=== PATIENT | female | born 1950 | race Caucasian/White ===

== ENCOUNTER → 2017-11-22 | Outpatient (CLI) | payer MEDICARE, OTHER ==
[~2017-11-22] MED LIST: REGADENOSON 0.4 MG/5 ML DISP.SYRIN. IV ONE
--- NOTE | 2017-11-22 09:26 | CARD ---
MR#: [id number] Date of Study: 11/22/2017 Ordering Physician: KAYA CHACKO, Referring Physician: KAYA CHACKO, Tech: AYDEN Resendiz APPROVED REPORT EXAM: Two-dimensional and M-mode echocardiogram with Doppler and color Doppler. Other Information Quality : AverageHR: 71bpm Technically limited study due to smoking. INDICATION Dyspnea RISK FACTORS Smoking 2D DIMENSIONS RVDd2.5 (2.9-3.5cm)Left Atrium(2D)2.5 (1.6-4.0cm) IVSd1.0 (0.7-1.1cm)Aortic Root(2D)2.6 (2.0-3.7cm) LVDd4.4 (3.9-5.9cm)LVOT Diameter1.7 (1.8-2.4cm) PWd1.0 (0.7-1.1cm)LVDs2.9 (2.5-4.0cm) FS (%) 35.0 %SV57.7 ml LVEF(%)64.4 (>50%) Aortic Valve AoV Peak Thien.115.1cm/sAoV VTI30.2cm AO Peak GR.5.3mmHgLVOT Peak Thien.89.9cm/s LVOT VTI 20.29cmAO Mean GR.3mmHg ALVIN (VMAX)1.13ww7CYV (VTI)1.49cm2 Mitral Valve MV E Hhqxcsoz114.9cm/sMV E Peak Gr.54mmHg MV DECEL [id number] A Alcioaer71.2cm/s E/A Ratio1.1 Pulmonary Valve PV Peak Koltywkl41.5cm/sPV Peak Grad.3mmHg LEFT VENTRICLE The left ventricle is normal size. There is normal left ventricular wall thickness. The left ventricu lar systolic function is normal and the ejection fraction is within normal range. EF 65% There is nor mal LV segmental wall motion. Tissue Doppler imaging reveals moderate left ventricular diastolic dysf unction. RIGHT VENTRICLE The right ventricle is normal size. The right ventricular systolic function is normal. ATRIA The left atrium size is normal. The right atrium size is normal. Interatrial septum not well visualiz ed. AORTIC VALVE The aortic valve has restricted leaflet motion but opens. Doppler and Color Flow revealed no signific ant aortic regurgitation. There is no significant aortic valvular stenosis. There is no aortic valvul ar vegetation. MITRAL VALVE The mitral valve is mildly thickened. There is no evidence of mitral valve prolapse. There is no mitr al valve stenosis. Doppler and Color-flow revealed mild mitral regurgitation. TRICUSPID VALVE The tricuspid valve leaflets are thickened , but open well. Doppler and Color Flow revealed trace tri cuspid regurgitation. There is no tricuspid valve prolapse or vegetation. There is no tricuspid valve stenosis. PULMONIC VALVE The pulmonic valve is not well visualized. Doppler and Color Flow revealed trace to mild pulmonic harjit vular regurgitation. There is no pulmonic valvular stenosis. GREAT VESSELS The aortic root is normal in size. The IVC was not visualized. PERICARDIAL EFFUSION There is no pleural effusion. There is no evidence of significant pericardial effusion. Critical Notification Critical Value: No <Conclusion> The left ventricular systolic function is normal and the ejection fraction is within normal range. EF 65% There is normal LV segmental wall motion. No significant valvular disease by doppler criteria. Signed by : Kaya Chacko, Electronically Approved : 11/22/2017 09:25:34
--- NOTE | 2017-11-22 13:43 | RAD ---
MR#: [id number] Date of Study: 11/22/2017 Ordering Physician: KAYA CHACKO, Referring Physician: GEORGETTE MACHADO Tech: RT Terrie (R) (N) APPROVED REPORT Test Type: Pharmacological Stress Nurse/Tech: Howard Test Indications: BOWERS Cardiac History: See EHR Medications: See EHR Resting Heart Rate: 74 bpm Resting Blood Pressure: 184/88mmHg Pretest Chest Pain: None Pharm. Details Pharmacologic stress testing was performed using 0.4mg per 5ml of regadenoson given intravenously ove r 7-10 seconds. Stress Symptoms Dyspnea POST EXERCISE Reason for Termination: Infusion complete Max HR: 123 bpm Max Blood Pressure: 190/74mmHg Blood Pressure response to exercise: Normal blood pressure response during stress. Heart Rate response to exercise: increase Chest Pain: No. Arrhythmia: Yes. ST Change: Yes. INTERPRETATION Stress EKG Conclusion: Baseline EKG showed sinus rhythm. Non-diagnostic changes at peak stress. Peg ef episode of SVT noted in recovery terminated by carotid massage. Rest: Stress: Viability: Radiopharm.Tc99m KhzgasfitTb82q Sestamibi [id number] 33mCi Duration 20min. 15min. Img Date 11/22/2017 11/22/2017 Inj-Img Nhvn79gho. 60min. Rest Admin Site:IV - Right AntecubitalAdministrator: RT Terrie (R)(N) Stress Admin Site: IV - Right AntecubitalAdministrator: RT Terrie (R)(N) STRESS DATA End Diast. Vol.77.0mlAv. Heart Rate73.0bpm LVEDV index BSA2.0mlCardiac Output0.1L/min End Syst. Vol.16.0mlCO Index BSA4.5L/min LVESV index BSA0.0mlMyocardial Hnbn173.0g Eject. Gfymfmzo30.0% Stress Rates Pk. Fill Rate2.79EDV/secLVtime Pk. Fill 136.22msec Pk. Empty Rate2.96ESV/secLVtime Pk. Bqydc563.92msec 1/3 Pk. Fill1.49EDV/sec Stress Scores Regional WT1.00Summed WT6.00 Regional WM0.00Summed WM0.00 Study quality was good. Left Ventricular size was Normal at Rest and Stress. Lung uptake was Normal. Left Ventricular ejection fraction is 79%. The rest and stress images show normal perfusion, normal contraction and thickening. LV Perf. Quant 17 Seg. SSS0.00 17 Seg. SRS0.00 17 Seg. SDS0.00 Stress Defect Extent (% LAD)0.00Rest Defect Extent (% LAD)0.00Rev. Defect Extent (% LAD)0.00 Stress Defect Extent (% LCX) 0.00Rest Defect Extent (% LCX)0.00Rev. Defect Extent (% LCX)0.00 Stress Defect Extent (% RCA)0.00Rest Defect Extent (% RCA)0.00Rev. Defect Extent (% RCA)0.00 Stress Defect Extent (% KATALINA)0.00Rest Defect Extent (% KATALINA)0.00Rev. Defect Extent (% KATALINA)0.00 Conclusion 1. Regadenoson cardioisotope stress test did not show any evidence of ischemia or infarct. 2. Normal left ventricular systolic function with ejection fraction calculated at 79%. 3. Low risk for cardiac events. Signed by : Salvador Blackburn, Electronically Approved : 11/22/2017 13:42:22
== END | disposition home or self-care (01) ==
LOC: ECHO 07:47
PROVIDERS: ATTEND Internal Medicine Cardiovascular Disease
DX: I34.0 Nonrheumatic mitral (valve) insufficiency (principal); J44.9 Chronic obstructive pulmonary disease, unspecified; I10 Essential (primary) hypertension; R56.9 Unspecified convulsions; Z87.891 Personal history of nicotine dependence
CPT/HCPCS: 78452; 93017; 93306; 96374; 96375; 96376; A9500; J2785